=== PATIENT | male | born 1940 | race Caucasian/White ===

== ENCOUNTER 2017-08-27 16:43 | Inpatient (IN) | payer MEDICARE, OTHER ==
[~2017-08-27] VITALS: Ht 172.7 cm; Wt 129.2 kg
[~2017-08-27 16:43] MED LIST: CARV3.125 PO; CETI5 PO; CITA20 PO; CLOP75 PO; GLIP5 PO; GLUMETZA PO; GLYMET5 PO; INSLIS75I SC; INSULANI SC; INSULANPEN SC; LEVSOD50 PO; LIRA0.6P; MONT10T PO; OMEP40CA12 PO; ROSU10TA PO; TELM80 PO; TELM80/12.5 PO
[2017-08-27] MEDS ORDERED: TOUJEO SOL300 UNIT/1 (17:17)
[2017-08-27] MEDS ORDERED: GLUMETZA PO (17:19)
[2017-08-27] MEDS ORDERED: TELMISARTAN-HC1 EAC1 PO (17:20)
[2017-08-27] MEDS ORDERED: Citalopram HBr10 MG PO (17:21)
[2017-08-27] MEDS ORDERED: TRAM50 PO (17:21)
[2017-08-27] MEDS ORDERED: OMEPRAZOLE MAGN20 MG PO (17:22)
[2017-08-27] MEDS ORDERED: EPINEPHRIN0.3 MG/0.3 IM (17:23)
[2017-08-27 17:36] LABS: BASOPHILS ABSOLUTE AUTO 0.01 K/mm3 (0.00-0.23); BASOPHILS PERCENT AUTO 0 % (0-2); EOSINOPHILS ABSOLUTE AUTO 0.03 K/mm3 (0.00-0.68); EOSINOPHILS PERCENT AUTO 0 % (0-6); Hematocrit 34.3 % (37.0-53.0); Hemoglobin 10.7 g/dL (13.5-17.5); IMMATURE GRAN ABSOLUTE AUTO 0.02 K/mm3 (0.00-0.10); IMMATURE GRAN PERCENT AUTO 0 % (0-1); LYMPHOCYTES ABSOLUTE AUTO 0.99 K/mm3 (0.84-5.20); LYMPHOCYTES PERCENT AUTO 12 % (21-46); MONOCYTES ABSOLUTE AUTO 0.59 K/mm3 (0.16-1.47); MONOCYTES PERCENT AUTO 7 % (4-13); Mean Corpuscular HGB 28.5 pg (26.0-34.0); Mean Corpuscular HGB Conc 31.2 g/dL (31.5-36.5); Mean Corpuscular Volume 92 fL (80-100); Mean Platelet Volume 9.1 fL (9.1-12.4); NEUTROPHILS ABSOLUTE AUTO 6.84 K/mm3 (1.96-9.15); NEUTROPHILS PERCENT AUTO 81 % (41-73); Platelet Count 303 K/mm3 (150-400); RDW Coefficient Variation 16.6 % (11.7-14.2); RDW Standard Deviation 56.4 fL (35.1-46.3); Red Blood Cell Count 3.75 M/mm3 (4.30-5.90); White Blood Cell Count 8.48 K/mm3 (4.00-11.30)
[2017-08-27 17:47] LABS: International Normalized Ratio 1.1; Prothrombin Time Results 11.5 Sec (9.7-11.5)
[2017-08-27 17:52] LABS: Alanine Aminotransfer (ALT/SGP 17 U/L (12-78); Albumin, Blood 3.4 g/dL (3.4-5.0); Albumin/Globulin Ratio 0.8 (0.8-1.8); Alk Phos 57 U/L (50-136); Anion Gap 6 mmol/L (6-16); Aspartate Aminotrans (AST/SGOT 15 U/L (12-37); Bilirubin, Total 0.9 mg/dL (0.1-1.0); Blood Urea Nitrogen 15 mg/dL (8-24); Bun/Creatinine Ratio 20.2 (12.0-20.0); CO2, Blood 29 mmol/L (21-32); Calcium, Blood 8.8 mg/dL (8.5-10.1); Chloride, Blood 101 mmol/L (98-108); Creatinine, Blood 0.74 mg/dL (0.60-1.20); Globulin, Blood 4.1 g/dL (2.2-4.0); Glomerular Filtration Rate >60 (60-); Glucose, Blood 123 mg/dL (70-99); Potassium, Blood 3.8 mmol/L (3.5-5.5); Sodium, Blood 136 mmol/L (136-145); Total Protein, Blood 7.5 g/dL (6.4-8.2)
[2017-08-27 19:40] LABS: Source, Urine Clean Catch
[2017-08-27 19:47] LABS: Appearance, Urine Clear (Clear); Bilirubin, Urine Neg (Neg); Blood, Urine 1+ (Neg); Color, Urine Yellow (P-Yellow); Glucose Qualitative, Urine Neg (Neg); Ketones, Urine Neg (Neg); Leukocyte Esterase, Urine Neg (Neg); Nitrite, Urine Neg (Neg); Protein, Urine 3+ (Neg); Specific Gravity, Urine 1.015 (1.003-1.022); Urobilinogen, Urine NORM (Normal)
[2017-08-27 20:05] LABS: Bacteria Not Seen /hpf; Hyaline Casts 0-2 /lpf (0-2); Red Blood Cells, Urine 0-2 /hpf (0-2); Squamous Epithelial Cells Few /hpf (Few); White Blood Cells, Urine 0-2 /hpf (0-5)
[2017-08-28 05:53] LABS: Hematocrit 34.5 % (37.0-53.0); Hemoglobin 10.7 g/dL (13.5-17.5); Mean Corpuscular HGB 28.3 pg (26.0-34.0); Mean Corpuscular Volume 91 fL (80-100); Mean Platelet Volume 8.8 fL (9.1-12.4); Platelet Count 289 K/mm3 (150-400); RDW Coefficient Variation 16.6 % (11.7-14.2); RDW Standard Deviation 56.4 fL (35.1-46.3); Red Blood Cell Count 3.78 M/mm3 (4.30-5.90); White Blood Cell Count 9.21 K/mm3 (4.00-11.30)
[2017-08-28 06:15] LABS: Alanine Aminotransfer (ALT/SGP 16 U/L (12-78); Albumin/Globulin Ratio 0.7 (0.8-1.8); Alk Phos 57 U/L (50-136); Anion Gap 6 mmol/L (6-16); Aspartate Aminotrans (AST/SGOT 16 U/L (12-37); Bilirubin, Total 0.9 mg/dL (0.1-1.0); Blood Urea Nitrogen 13 mg/dL (8-24); Bun/Creatinine Ratio 15.1 (12.0-20.0); CO2, Blood 30 mmol/L (21-32); Calcium, Blood 8.5 mg/dL (8.5-10.1); Chloride, Blood 104 mmol/L (98-108); Creatinine, Blood 0.86 mg/dL (0.60-1.20); Globulin, Blood 4.3 g/dL (2.2-4.0); Glomerular Filtration Rate >60 (60-); Glucose, Blood 107 mg/dL (70-99); Potassium, Blood 3.8 mmol/L (3.5-5.5); Sodium, Blood 140 mmol/L (136-145); Total Protein, Blood 7.3 g/dL (6.4-8.2)
[2017-08-29 05:30] LABS: BASOPHILS ABSOLUTE AUTO 0.01 K/mm3 (0.00-0.23); BASOPHILS PERCENT AUTO 0 % (0-2); EOSINOPHILS ABSOLUTE AUTO 0.02 K/mm3 (0.00-0.68); EOSINOPHILS PERCENT AUTO 0 % (0-6); Hematocrit 31.5 % (37.0-53.0); Hemoglobin 9.6 g/dL (13.5-17.5); IMMATURE GRAN ABSOLUTE AUTO 0.02 K/mm3 (0.00-0.10); IMMATURE GRAN PERCENT AUTO 0 % (0-1); LYMPHOCYTES ABSOLUTE AUTO 0.71 K/mm3 (0.84-5.20); LYMPHOCYTES PERCENT AUTO 11 % (21-46); MONOCYTES ABSOLUTE AUTO 0.47 K/mm3 (0.16-1.47); MONOCYTES PERCENT AUTO 8 % (4-13); Mean Corpuscular HGB 28.3 pg (26.0-34.0); Mean Corpuscular HGB Conc 30.5 g/dL (31.5-36.5); Mean Corpuscular Volume 93 fL (80-100); Mean Platelet Volume 8.7 fL (9.1-12.4); NEUTROPHILS ABSOLUTE AUTO 5.02 K/mm3 (1.96-9.15); NEUTROPHILS PERCENT AUTO 80 % (41-73); Platelet Count 272 K/mm3 (150-400); RDW Coefficient Variation 16.7 % (11.7-14.2); RDW Standard Deviation 58.2 fL (35.1-46.3); Red Blood Cell Count 3.39 M/mm3 (4.30-5.90); White Blood Cell Count 6.25 K/mm3 (4.00-11.30)
[2017-08-29 05:59] LABS: Alanine Aminotransfer (ALT/SGP 19 U/L (12-78); Albumin, Blood 2.5 g/dL (3.4-5.0); Albumin/Globulin Ratio 0.6 (0.8-1.8); Alk Phos 51 U/L (50-136); Anion Gap 5 mmol/L (6-16); Aspartate Aminotrans (AST/SGOT 29 U/L (12-37); Bilirubin, Total 1.2 mg/dL (0.1-1.0); Blood Urea Nitrogen 18 mg/dL (8-24); Bun/Creatinine Ratio 22.5 (12.0-20.0); CO2, Blood 30 mmol/L (21-32); Calcium, Blood 8.1 mg/dL (8.5-10.1); Chloride, Blood 106 mmol/L (98-108); Globulin, Blood 3.9 g/dL (2.2-4.0); Glomerular Filtration Rate >60 (60-); Glucose, Blood 116 mg/dL (70-99); Potassium, Blood 3.8 mmol/L (3.5-5.5); Sodium, Blood 141 mmol/L (136-145); Total Protein, Blood 6.4 g/dL (6.4-8.2)
[2017-08-29 11:36] LABS: Percent Saturation 9.3 % (20.0-50.0)
[2017-08-30 05:02] LABS: BASOPHILS ABSOLUTE AUTO 0.01 K/mm3 (0.00-0.23); BASOPHILS PERCENT AUTO 0 % (0-2); EOSINOPHILS ABSOLUTE AUTO 0.09 K/mm3 (0.00-0.68); EOSINOPHILS PERCENT AUTO 2 % (0-6); Hematocrit 32.7 % (37.0-53.0); Hemoglobin 9.9 g/dL (13.5-17.5); IMMATURE GRAN ABSOLUTE AUTO 0.01 K/mm3 (0.00-0.10); IMMATURE GRAN PERCENT AUTO 0 % (0-1); LYMPHOCYTES ABSOLUTE AUTO 0.47 K/mm3 (0.84-5.20); LYMPHOCYTES PERCENT AUTO 12 % (21-46); MONOCYTES PERCENT AUTO 8 % (4-13); Mean Corpuscular HGB 27.7 pg (26.0-34.0); Mean Corpuscular HGB Conc 30.3 g/dL (31.5-36.5); Mean Corpuscular Volume 92 fL (80-100); Mean Platelet Volume 8.8 fL (9.1-12.4); NEUTROPHILS ABSOLUTE AUTO 3.12 K/mm3 (1.96-9.15); NEUTROPHILS PERCENT AUTO 78 % (41-73); Platelet Count 319 K/mm3 (150-400); RDW Coefficient Variation 16.8 % (11.7-14.2); RDW Standard Deviation 57.3 fL (35.1-46.3); Red Blood Cell Count 3.57 M/mm3 (4.30-5.90)
[2017-08-30 05:23] LABS: Alanine Aminotransfer (ALT/SGP 19 U/L (12-78); Albumin, Blood 2.4 g/dL (3.4-5.0); Albumin/Globulin Ratio 0.6 (0.8-1.8); Alk Phos 55 U/L (50-136); Anion Gap 5 mmol/L (6-16); Aspartate Aminotrans (AST/SGOT 20 U/L (12-37); Bilirubin, Total 0.7 mg/dL (0.1-1.0); Blood Urea Nitrogen 21 mg/dL (8-24); Bun/Creatinine Ratio 26.1 (12.0-20.0); CO2, Blood 30 mmol/L (21-32); Calcium, Blood 8.3 mg/dL (8.5-10.1); Chloride, Blood 105 mmol/L (98-108); Globulin, Blood 4.3 g/dL (2.2-4.0); Glomerular Filtration Rate >60 (60-); Glucose, Blood 165 mg/dL (70-99); Potassium, Blood 3.8 mmol/L (3.5-5.5); Sodium, Blood 140 mmol/L (136-145); Total Protein, Blood 6.7 g/dL (6.4-8.2)
[2017-08-30] MEDS ORDERED: Senna Plus Tab1 EACH PO (15:48)
[2017-08-30] MEDS ORDERED: ONDA4 PO (15:49)
[2017-08-30] MEDS ORDERED: MIRALAX17 GM PO (15:50)
[2017-08-30] MEDS ORDERED: Percocet 5-3251 EACH PO (15:51)
== END 2017-08-30 16:34 | disposition home or self-care (01) | DRG 392 ==
LOC: ER 16:43 → SURS 20:10
PROVIDERS: Emergency Medicine; Internal Medicine; Internal Medicine Gastroenterology
PROC: 0DB98ZX Excision of Duodenum, Via Natural or Artificial Opening Endoscopic, Diagnostic (ICD-10-PCS; principal; 2017-08-28 18:30)
PROC: 0DB98ZX Excision of Duodenum, Via Natural or Artificial Opening Endoscopic, Diagnostic (ICD-10-PCS; 2017-08-28 18:30)
DX: R19.00 Intra-abdominal and pelvic swelling, mass and lump, unspecified site (principal); E66.2 Morbid (severe) obesity with alveolar hypoventilation; Z68.41 Body mass index [BMI] 40.0-44.9, adult; K26.9 Duodenal ulcer, unspecified as acute or chronic, without hemorrhage or perforation; J44.9 Chronic obstructive pulmonary disease, unspecified; K81.9 Cholecystitis, unspecified; I10 Essential (primary) hypertension; G47.30 Sleep apnea, unspecified; K31.7 Polyp of stomach and duodenum; E11.9 Type 2 diabetes mellitus without complications
CPT/HCPCS: 36415; 74177; 76705; 78226; 80053; 81001; 82728; 82941; 82947; 83540; 83550; 83690; 84484; 85025; 85027; 85610; 88305; 88342; 93005; 93010; 94640; 94760; 94761; 94762; 96361; 96374; 96375; 97116; 97162; 97530; 99285; A9537; G8978; G8979; J0295; J1170; J2250; J2405; J2543; J3010; J7030; J7120; Q9967

== ENCOUNTER 2018-01-07 15:42 | Inpatient (IN) | payer MEDICARE, OTHER ==
[~2018-01-07] VITALS: Ht 172.7 cm; Wt 116.2 kg
[~2018-01-07 15:42] MED LIST changes: +Citalopram HBr10 MG PO; +EPINEPHRIN0.3 MG/0.3 IM; +MIRALAX17 GM PO; +OMEPRAZOLE MAGN20 MG PO; +ONDA4 PO; +Percocet 5-3251 EACH PO; +Senna Plus Tab1 EACH PO; +TELMISARTAN-HC1 EAC1 PO; +TOUJEO SOL300 UNIT/1 SC; +TRAM50 PO
[2018-01-07] MEDS ORDERED: AZO CRANBERRY1 EAC1 PO (16:21)
[2018-01-07] MEDS ORDERED: Nitrostat0.4 MG SL (16:22)
[2018-01-07] MEDS ORDERED: XYZAL5 MG PO (16:22)
[2018-01-07 16:25] LABS: Hematocrit 35.1 % (37.0-53.0); Hemoglobin 11.6 g/dL (13.5-17.5); Mean Corpuscular HGB 26.9 pg (26.0-34.0); Mean Platelet Volume 8.8 fL (9.1-12.4); Platelet Count 286 K/mm3 (150-400); RDW Coefficient Variation 16.1 % (11.7-14.2); RDW Standard Deviation 48.7 fL (35.1-46.3); Red Blood Cell Count 4.31 M/mm3 (4.30-5.90)
[2018-01-07 16:26] LABS: Mean Corpuscular Volume 81 fL (80-100)
[2018-01-07 16:37] LABS: Alanine Aminotransfer (ALT/SGP 21 U/L (12-78); Albumin, Blood 2.6 g/dL (3.4-5.0); Albumin/Globulin Ratio 0.6 (0.8-1.8); Alk Phos 88 U/L (50-136); Anion Gap 12 mmol/L (6-16); Aspartate Aminotrans (AST/SGOT 23 U/L (12-37); Blood Urea Nitrogen 12 mg/dL (8-24); Bun/Creatinine Ratio 16.3 (12.0-20.0); CO2, Blood 28 mmol/L (21-32); Calcium, Blood 8.3 mg/dL (8.5-10.1); Chloride, Blood 94 mmol/L (98-108); Creatinine, Blood 0.74 mg/dL (0.60-1.20); Globulin, Blood 4.5 g/dL (2.2-4.0); Glomerular Filtration Rate >60 (60-); Glucose, Blood 194 mg/dL (70-99); Potassium, Blood 3.1 mmol/L (3.5-5.5); Sodium, Blood 134 mmol/L (136-145); Total Protein, Blood 7.1 g/dL (6.4-8.2)
[2018-01-07 16:49] LABS: BAND PERCENT MAN 2 % (0-8); BASOPHILS PERCENT MAN 0 % (0-2); EOSINOPHILS PERCENT MAN 0 % (0-6); LYMPHOCYTES ABSOLUTE MAN 0.36 K/mm3 (0.84-5.20); LYMPHOCYTES PERCENT MAN 12 % (21-46); MONOCYTES ABSOLUTE MAN 0.48 K/mm3 (0.16-1.47); MONOCYTES PERCENT MAN 16 % (4-13); NEUTROPHILS ABSOLUTE MAN 2.16 K/mm3 (1.96-9.15); SEG NEUTROPHILS PERCENT MAN 70 % (41-73); TOTAL CELLS COUNTED 100
[2018-01-08 05:38] LABS: Hematocrit 31.4 % (37.0-53.0); Mean Corpuscular HGB 26.5 pg (26.0-34.0); Mean Corpuscular HGB Conc 31.8 g/dL (31.5-36.5); Mean Corpuscular Volume 83 fL (80-100); Mean Platelet Volume 9.1 fL (9.1-12.4); Platelet Count 244 K/mm3 (150-400); RDW Coefficient Variation 16.2 % (11.7-14.2); RDW Standard Deviation 49.4 fL (35.1-46.3); Red Blood Cell Count 3.77 M/mm3 (4.30-5.90); White Blood Cell Count 1.89 K/mm3 (4.00-11.30)
[2018-01-08 06:07] LABS: BAND PERCENT MAN 8 % (0-8); BASOPHILS PERCENT MAN 0 % (0-2); EOSINOPHILS PERCENT MAN 0 % (0-6); LYMPHOCYTES ABSOLUTE MAN 0.13 K/mm3 (0.84-5.20); LYMPHOCYTES PERCENT MAN 7 % (21-46); METAMYELOCYTE ABSOLUTE MAN 0.01 K/mm3 (0.00-0.00); METAMYELOCYTE PERCENT MAN 1 % (0-0); MONOCYTES ABSOLUTE MAN 0.28 K/mm3 (0.16-1.47); MONOCYTES PERCENT MAN 15 % (4-13); MYELOCYTE ABSOLUTE MAN 0.05 K/mm3 (0.00-0.00); MYELOCYTE PERCENT MAN 3 % (0-0); NEUTROPHILS ABSOLUTE MAN 1.39 K/mm3 (1.96-9.15); SEG NEUTROPHILS PERCENT MAN 66 % (41-73); TOTAL CELLS COUNTED 100
[2018-01-08 06:09] LABS: Anion Gap 8 mmol/L (6-16); Blood Urea Nitrogen 8 mg/dL (8-24); Bun/Creatinine Ratio 10.3 (12.0-20.0); CO2, Blood 31 mmol/L (21-32); Calcium, Blood 8.1 mg/dL (8.5-10.1); Chloride, Blood 101 mmol/L (98-108); Creatinine, Blood 0.77 mg/dL (0.60-1.20); Free Thyroxine 1.35 ng/dL (0.70-1.60); Glomerular Filtration Rate >60 (60-); Glucose, Blood 118 mg/dL (70-99); Sodium, Blood 140 mmol/L (136-145)
[2018-01-08 06:13] LABS: Thyroid Stimulating Hormone 0.386 uIU/mL (0.360-4.800); Triiodothyronine, Free 1.99 pg/mL (2.18-3.98)
[2018-01-09 05:44] LABS: Hematocrit 32.2 % (37.0-53.0); Hemoglobin 10.3 g/dL (13.5-17.5); Mean Corpuscular HGB 26.8 pg (26.0-34.0); Mean Corpuscular Volume 84 fL (80-100); Mean Platelet Volume 8.6 fL (9.1-12.4); Platelet Count 250 K/mm3 (150-400); RDW Coefficient Variation 16.1 % (11.7-14.2); RDW Standard Deviation 49.1 fL (35.1-46.3); Red Blood Cell Count 3.85 M/mm3 (4.30-5.90); White Blood Cell Count 1.52 K/mm3 (4.00-11.30)
[2018-01-09 06:04] LABS: Anion Gap 7 mmol/L (6-16); Blood Urea Nitrogen 10 mg/dL (8-24); Bun/Creatinine Ratio 14.4 (12.0-20.0); CO2, Blood 30 mmol/L (21-32); Calcium, Blood 8.1 mg/dL (8.5-10.1); Chloride, Blood 103 mmol/L (98-108); Glomerular Filtration Rate >60 (60-); Glucose, Blood 128 mg/dL (70-99); Potassium, Blood 3.2 mmol/L (3.5-5.5); Sodium, Blood 140 mmol/L (136-145); Vancomycin, Trough 4.5 ug/mL (5.0-10.0)
[2018-01-09 06:10] LABS: BAND PERCENT MAN 7 % (0-8); BASOPHILS ABSOLUTE MAN 0.04 K/mm3 (0.00-0.23); BASOPHILS PERCENT MAN 3 % (0-2); EOSINOPHILS ABSOLUTE MAN 0.01 K/mm3 (0.00-0.68); EOSINOPHILS PERCENT MAN 1 % (0-6); LYMPHOCYTES ABSOLUTE MAN 0.18 K/mm3 (0.84-5.20); LYMPHOCYTES PERCENT MAN 12 % (21-46); MONOCYTES ABSOLUTE MAN 0.31 K/mm3 (0.16-1.47); MONOCYTES PERCENT MAN 21 % (4-13); NEUTROPHILS ABSOLUTE MAN 0.95 K/mm3 (1.96-9.15); SEG NEUTROPHILS PERCENT MAN 56 % (41-73); TOTAL CELLS COUNTED 100
[2018-01-11] MEDS ORDERED: CARV6.25 PO (10:25)
[2018-01-11] MEDS ORDERED: INSULANPEN SC (10:27)
[2018-01-11] MEDS ORDERED: ALBU3IS INH (10:49)
[2018-01-11] MEDS ORDERED: LIOT5 PO (10:50)
[2018-01-11] MEDS ORDERED: Senna8.6 MG PO (10:50)
[2018-01-11] MEDS ORDERED: DOCU100 PO (10:50)
[2018-01-11] MEDS ORDERED: POTCHL20ER PO (10:50)
[2018-01-11] MEDS ORDERED: CEFP200 PO (10:51)
== END 2018-01-11 12:07 | disposition home or self-care (01) | DRG 871 ==
LOC: ER 15:42 → MEDS 18:03 → ENPENDDIS 01-11 09:24 → MEDS 01-11 12:07
PROVIDERS: Emergency Medicine; Internal Medicine
DX: A41.9 Sepsis, unspecified organism (principal); J18.9 Pneumonia, unspecified organism; J96.01 Acute respiratory failure with hypoxia; G93.41 Metabolic encephalopathy; C88.4 Extranodal marginal zone B-cell lymphoma of mucosa-associated lymphoid tissue [MALT-lymphoma]; E87.1 Hypo-osmolality and hyponatremia; R65.20 Severe sepsis without septic shock; E86.0 Dehydration; E11.9 Type 2 diabetes mellitus without complications; I10 Essential (primary) hypertension; E78.5 Hyperlipidemia, unspecified; E87.6 Hypokalemia; E03.9 Hypothyroidism, unspecified; G47.33 Obstructive sleep apnea (adult) (pediatric); K59.09 Other constipation; D63.8 Anemia in other chronic diseases classified elsewhere; D70.1 Agranulocytosis secondary to cancer chemotherapy; E66.9 Obesity, unspecified; Z92.21 Personal history of antineoplastic chemotherapy; Z79.4 Long term (current) use of insulin; Z79.899 Other long term (current) drug therapy; Z88.6 Allergy status to analgesic agent; Z88.1 Allergy status to other antibiotic agents; Z88.5 Allergy status to narcotic agent; Z88.2 Allergy status to sulfonamides; Z88.8 Allergy status to other drugs, medicaments and biological substances; Z87.891 Personal history of nicotine dependence; Z68.25 Body mass index [BMI] 25.0-25.9, adult
CPT/HCPCS: 36415; 71045; 71046; 80048; 80053; 80202; 82947; 83605; 84145; 84439; 84443; 84481; 85025; 87040; 93005; 93010; 94640; 94760; 96361; 96365; 96375; 99285-25; J0692; J2405; J3370; J7030; J7050; J7120

== ENCOUNTER 2018-06-04 18:53 | Emergency (ER) | payer MEDICARE, OTHER ==
[~2018-06-04] VITALS: Ht 172.7 cm; Wt 122.5 kg
[~2018-06-04 18:53] MED LIST changes: +ALBU3IS INH; +AZO CRANBERRY1 EAC1 PO; +CARV6.25 PO; +CEFP200 PO; +DOCU100 PO; +LIOT5 PO; +Nitrostat0.4 MG SL; +POTCHL20ER PO; +Senna8.6 MG PO; +XYZAL5 MG PO
[2018-06-04 19:28] LABS: BASOPHILS ABSOLUTE AUTO 0.02 K/mm3 (0.00-0.23); BASOPHILS PERCENT AUTO 0 % (0-2); EOSINOPHILS ABSOLUTE AUTO 0.02 K/mm3 (0.00-0.68); EOSINOPHILS PERCENT AUTO 0 % (0-6); Hematocrit 41.6 % (37.0-53.0); Hemoglobin 13.8 g/dL (13.5-17.5); IMMATURE GRAN ABSOLUTE AUTO 0.02 K/mm3 (0.00-0.10); IMMATURE GRAN PERCENT AUTO 0 % (0-1); LYMPHOCYTES ABSOLUTE AUTO 0.74 K/mm3 (0.84-5.20); LYMPHOCYTES PERCENT AUTO 7 % (21-46); MONOCYTES ABSOLUTE AUTO 0.98 K/mm3 (0.16-1.47); MONOCYTES PERCENT AUTO 9 % (4-13); Mean Corpuscular HGB 28.6 pg (26.0-34.0); Mean Corpuscular HGB Conc 33.2 g/dL (31.5-36.5); Mean Corpuscular Volume 86 fL (80-100); Mean Platelet Volume 9.4 fL (9.1-12.4); NEUTROPHILS ABSOLUTE AUTO 9.57 K/mm3 (1.96-9.15); NEUTROPHILS PERCENT AUTO 84 % (41-73); Platelet Count 169 K/mm3 (150-400); RDW Coefficient Variation 15.9 % (11.7-14.2); RDW Standard Deviation 49.1 fL (35.1-46.3); Red Blood Cell Count 4.83 M/mm3 (4.30-5.90); White Blood Cell Count 11.35 K/mm3 (4.00-11.30)
[2018-06-04 19:46] LABS: Alanine Aminotransfer (ALT/SGP 40 U/L (12-78); Albumin, Blood 3.5 g/dL (3.4-5.0); Albumin/Globulin Ratio 0.9 (0.8-1.8); Alk Phos 54 U/L (50-136); Anion Gap 8 mmol/L (6-16); Aspartate Aminotrans (AST/SGOT 22 U/L (12-37); Bilirubin, Total 1.1 mg/dL (0.1-1.0); Blood Urea Nitrogen 13 mg/dL (8-24); Bun/Creatinine Ratio 16.8 (12.0-20.0); CO2, Blood 27 mmol/L (21-32); Calcium, Blood 8.5 mg/dL (8.5-10.1); Chloride, Blood 103 mmol/L (98-108); Creatinine, Blood 0.78 mg/dL (0.60-1.20); Globulin, Blood 3.7 g/dL (2.2-4.0); Glomerular Filtration Rate >60 (60-); Glucose, Blood 117 mg/dL (70-99); Potassium, Blood 3.5 mmol/L (3.5-5.5); Sodium, Blood 138 mmol/L (136-145); Total Protein, Blood 7.2 g/dL (6.4-8.2); Troponin I <0.015 ng/mL (0.000-0.040)
[2018-06-04] MEDS ORDERED: Doxycycline Hy100 MG PO (22:21)
== END 2018-06-04 22:40 | disposition home or self-care (01) ==
LOC: ER 18:53
PROVIDERS: Physician Assistant
DX: R04.2 Hemoptysis (principal); E11.9 Type 2 diabetes mellitus without complications; Z88.8 Allergy status to other drugs, medicaments and biological substances; Z88.2 Allergy status to sulfonamides; Z88.6 Allergy status to analgesic agent; Z88.5 Allergy status to narcotic agent; Z91.018 Allergy to other foods; Z79.899 Other long term (current) drug therapy; Z79.4 Long term (current) use of insulin; Z87.891 Personal history of nicotine dependence
CPT/HCPCS: 71046; 71260; 80053; 84484; 85025; 93005; 93010; 99285-25; Q9967

== ENCOUNTER 2018-06-05 18:29 | Emergency (ER) | payer MEDICARE, OTHER ==
[~2018-06-05] VITALS: Ht 172.7 cm; Wt 122.5 kg
[~2018-06-05 18:29] MED LIST changes: +Doxycycline Hy100 MG PO
== END 2018-06-05 21:33 | disposition left against medical advice (07) ==
LOC: ER 18:29
DX: Z53.21 Procedure and treatment not carried out due to patient leaving prior to being seen by health care provider (principal)

== ENCOUNTER 2018-09-26 09:04 | Day surgery (SDC) | payer MEDICARE, OTHER ==
[~2018-09-26] VITALS: Ht 165.1 cm; Wt 129.4 kg
[~2018-09-26 09:04] MED LIST changes: +AMLO5 PO; +Crestor20 MG PO; +Humalog100 UNIT/1; +Lantus100 UNIT/1 SC; +TRAZ50 PO; +Xyzal5 MG PO
--- NOTE | 2018-09-26 11:26 | NUR ---
09/26/18 1126 Awa Nielsen LATE ENTRY---DURING PROCEDURE O2 WAS SET AT 10L/POM MASK AND THE NASAL CANNULA WAS USED TO MONITOR CO2.
== END 2018-09-26 11:05 | disposition home or self-care (01) ==
LOC: ORSCSDS 09:04
PROVIDERS: Internal Medicine Gastroenterology
PROC: 0DB68ZX Excision of Stomach, Via Natural or Artificial Opening Endoscopic, Diagnostic (ICD-10-PCS; principal; 2018-09-26 10:15)
PROC: 0DB98ZX Excision of Duodenum, Via Natural or Artificial Opening Endoscopic, Diagnostic (ICD-10-PCS; principal; 2018-09-26 10:15)
DX: Z85.79 Personal history of other malignant neoplasms of lymphoid, hematopoietic and related tissues (principal); K31.7 Polyp of stomach and duodenum; E11.9 Type 2 diabetes mellitus without complications; I10 Essential (primary) hypertension; E78.5 Hyperlipidemia, unspecified; G47.33 Obstructive sleep apnea (adult) (pediatric); J44.9 Chronic obstructive pulmonary disease, unspecified; Z87.891 Personal history of nicotine dependence; Z79.4 Long term (current) use of insulin; Z79.899 Other long term (current) drug therapy
CPT/HCPCS: 82947; 88305; 88341; 88342; J2250; J2704; J7120

== ENCOUNTER 2020-05-23 08:25 | Day surgery (SDC) | payer MEDICARE, OTHER ==
[~2020-05-23] VITALS: Ht 172.7 cm; Wt 124.5 kg
[~2020-05-23 08:25] MED LIST changes: +CITALOPRAM HBR20 MG PO; +HUMALOG100 UNIT/1 SC; +TELM20; +TOUJEO SOL300 UNIT/2 SC; +ZOLP10; +[UNRECOGNIZED DRUG - OTHER] PO
--- NOTE | 2020-05-23 10:29 | NUR ---
05/23/20 1029 Jacey Farrar SIMETHICONE USED DURING PROCEDURE.
--- NOTE | 2020-05-23 16:16 | NUR ---
05/23/20 1616 LeniJacey Gt DELAYED ENTRY POST PROCEDURE, PT BROUGHT BACK TO ROOM. VITAL SIGNS OBTAINED, WNL, PT ALERT & ORIENTED, DENIED PAIN OR DISCOMFORT. PT VERBALIZING WITH RN REGARDING PROCEDURE & FINDINGS, RN INFORMED THAT PHYSICIAN WOULD BE IN WITH MORE DETAILS. PO INTAKE PROVIDED. PT RESTING COMFORTABLY IN BED, DRINKING JUICE, CALL LIGHT WITHIN REACH. PT BELONGINGS PLACED ON BED PER PT'S REQUEST TO DRESS. PT STS HE "FEELS GOOD" AND VERBALIZED ABILITY TO DRESS WITHOUT ASSISTANCE. RN REMINDED PATIENT TO TAKE TIME AND MOVE SLOWLY. RN CLOSED CURTAIN FOR PRIVACY, REMINDED PATIENT TO PRESS CALL LIGHT IF ASSISTANCE WAS NEEDED. MOMENTS LATER, RN IN ROOM NEXT TO PATIENT, HEARD A LOUD BANG AND BELONGINGS BAG FALL. UPON ENTERING, RN FOUND PATIENT DOWN ON GROUND ON ALL FOURS, PALMS & ON KNEES. PT VERBALIZED HE HAD FALLEN OUT OF BED. PT DENIED ANY PAIN, INJURY OR HITTING HEAD DURING FALL. RN INSTRUCTED PATIENT TO LAY ON HIS SIDE IF HE WAS ABLE TO. PT ROTATED TO SIDE. MULTIPLE STAFF MEMBERS, INCLUDING 3 RN, 1 MD, 1 ORT, TO ROOM TO ASSIST PATIENT TO WHEEL CHAIR VIA GAIT BELT. PT ASSESSED AGAIN, AND CONTINUED TO DENY PAIN OR INJURYING, STATING "I'M FINE, I'M JUST EMBARRESSED." NEW DISPOSABLE BRIEF PROVIDED, CURRENT ONE WAS REMOVED IN PROCEDURE ROOM. 2 RN ASSISTED PATIENT IN DRESSING WHILE IN W/C. GAIT BELT UTILIZED TO ASSIST PATIENT TO STANDING POSITION TO COMPLETE DRESSING. PT ASKED IF HIS KNEE WAS BLEEDING, POINTING TO RIGHT KNEE. RN ASSESSED, SLIGHT REDDENING, BUT NO LACERATION OR ABRASION NOTED. RN INQUIRED ABOUT PAIN OR DISCOMFORT, PATIENT CONTINUED TO DENY. PT REQUESTED TO LEAVE, REITERATING HE WAS WITHOUT INJURY AND WANTED TO GO HOME. PT INFORMED PHYSICIAN NEEDED TO ASSESS PATIENT FOR INJURY PRIOR TO DISCHARGE, HOWEVER PHYSICIAN WAS CURRENTLY IN PROCEDURE. PT STATED HE DID NOT WANT TO WAIT FOR PHYSICIAN AND REQUESTED TO LEAVE AGAINST MEDICAL ADVICE. DR. PIERCE INFORMED OF PATIENT'S REQUEST TO LEAVE AMA WITHOUT PHYSICIAN ASSESSMENT. DR. PIERCE ADVISED PATIENT NOT TO LEAVE AMA FOR SAFETY REASONS, BUT ALSO BECAUSE INSURANCE COULD DENY COVERAGE FOR COLONOSCOPY/ENDOSCOPY. PT INFORMED AND AGREED TO WAIT FOR DR ASSESSMENT PRIOR TO LEAVING. PT PROVIDED MORE JUICE, CALL LIGHT WITHIN REACH. DENIED FURTHER NEEDS OR DISCOMFORT. PT PRESSED CALL LIGHT, IN NEED TO USE RESTROOM. PT TAKEN TO RESTROOM VIA WHEELCHAIR BY MA & RN. MALE MA ASSISTED PATIENT IN TRANSFERRING FROM WHEELCHAIR TO TOILET VIA GAIT BELT. PATIENT RETURNED TO WHEELCHAIR VIA GAIT BELT. DR. PIERCE ASSESSED PATIENT, AND ADVISED PATIENT WAS MEDICALLY STABLE TO DISCHARGE HOME, PT WAS NOT EXHIBITING SYMPTOMS, AND CONTINUED TO DENY ANY PAIN. PATIENT ESCORTED TO [place], [place], CAR VIA WHEEL CHAIR BY RN. RN ASSISTED PATIENT IN TRANSFER TO CAR VIA GAIT BELT. PT STEADY ON FEET, VERBALIZED THANKS, STATING HE WAS EAGER TO GO HOME. GAIT BELT REMOVED.
== END 2020-05-23 12:45 | disposition home or self-care (01) ==
LOC: ORSCSDS 08:25
PROVIDERS: Internal Medicine Gastroenterology
PROC: 0DBK8ZX Excision of Ascending Colon, Via Natural or Artificial Opening Endoscopic, Diagnostic (ICD-10-PCS; principal; 2020-05-23 09:45)
PROC: 0DBM8ZX Excision of Descending Colon, Via Natural or Artificial Opening Endoscopic, Diagnostic (ICD-10-PCS; principal; 2020-05-23 09:45)
PROC: 0DBN8ZX Excision of Sigmoid Colon, Via Natural or Artificial Opening Endoscopic, Diagnostic (ICD-10-PCS; principal; 2020-05-23 09:45)
PROC: 0DB98ZX Excision of Duodenum, Via Natural or Artificial Opening Endoscopic, Diagnostic (ICD-10-PCS; principal; 2020-05-23 09:45)
PROC: 0DB78ZX Excision of Stomach, Pylorus, Via Natural or Artificial Opening Endoscopic, Diagnostic (ICD-10-PCS; principal; 2020-05-23 09:45)
PROC: 0DBL8ZX Excision of Transverse Colon, Via Natural or Artificial Opening Endoscopic, Diagnostic (ICD-10-PCS; principal; 2020-05-23 09:45)
DX: R19.7 Diarrhea, unspecified (principal); K31.89 Other diseases of stomach and duodenum; K29.70 Gastritis, unspecified, without bleeding; D12.5 Benign neoplasm of sigmoid colon; D12.3 Benign neoplasm of transverse colon; D12.2 Benign neoplasm of ascending colon; D12.4 Benign neoplasm of descending colon; Z85.79 Personal history of other malignant neoplasms of lymphoid, hematopoietic and related tissues; E11.9 Type 2 diabetes mellitus without complications; I10 Essential (primary) hypertension; E78.5 Hyperlipidemia, unspecified; G47.33 Obstructive sleep apnea (adult) (pediatric); I25.10 Atherosclerotic heart disease of native coronary artery without angina pectoris; Z87.891 Personal history of nicotine dependence; Z80.0 Family history of malignant neoplasm of digestive organs; Z79.899 Other long term (current) drug therapy; Z79.4 Long term (current) use of insulin
CPT/HCPCS: 82947; 88305; 88341; 88342; J2704; J7120

== ENCOUNTER → 2020-09-30 | Outpatient (CLI) | payer MEDICARE, OTHER | END | disposition home or self-care (01) | LOC: LAB 11:21 → LAB SHORT 11:21 | DX: L30.9 Dermatitis, unspecified (principal) | CPT/HCPCS: 88305 ==

== ENCOUNTER 2021-04-19 00:34 | Observation (INO) | payer MEDICARE, OTHER ==
[~2021-04-19] VITALS: Ht 167.6 cm; Wt 103.0 kg
[~2021-04-19 00:34] MED LIST changes: +OMEP20ER PO
[2021-04-19 00:57] LABS: BASOPHILS ABSOLUTE AUTO 0.05 K/mm3 (0.00-0.23); BASOPHILS PERCENT AUTO 1 % (0-2); EOSINOPHILS PERCENT AUTO 6 % (0-6); Hematocrit 41.1 % (37.0-53.0); Hemoglobin 12.9 g/dL (13.5-17.5); IMMATURE GRAN ABSOLUTE AUTO 0.02 K/mm3 (0.00-0.10); IMMATURE GRAN PERCENT AUTO 0 % (0-1); LYMPHOCYTES ABSOLUTE AUTO 0.98 K/mm3 (0.84-5.20); LYMPHOCYTES PERCENT AUTO 21 % (21-46); MONOCYTES ABSOLUTE AUTO 0.48 K/mm3 (0.16-1.47); MONOCYTES PERCENT AUTO 10 % (4-13); Mean Corpuscular HGB 28.6 pg (26.0-34.0); Mean Corpuscular HGB Conc 31.4 g/dL (31.5-36.5); Mean Corpuscular Volume 91 fL (80-100); Mean Platelet Volume 9.5 fL (9.1-12.4); NEUTROPHILS ABSOLUTE AUTO 2.84 K/mm3 (1.96-9.15); NEUTROPHILS PERCENT AUTO 61 % (41-73); Platelet Count 172 K/mm3 (150-400); RDW Coefficient Variation 14.6 % (11.7-14.2); RDW Standard Deviation 48.6 fL (35.1-46.3); Red Blood Cell Count 4.51 M/mm3 (4.30-5.90); White Blood Cell Count 4.67 K/mm3 (4.00-11.30)
[2021-04-19 01:14] LABS: International Normalized Ratio 1.04; Prothrombin Time Results 10.9 Sec (9.7-11.5)
[2021-04-19 01:26] LABS: Alanine Aminotransfer (ALT/SGP 32 U/L (12-78); Albumin, Blood 3.3 g/dL (3.4-5.0); Alk Phos 53 U/L (50-136); Anion Gap 7 mmol/L (6-16); Aspartate Aminotrans (AST/SGOT 19 U/L (12-37); Bilirubin, Total 0.6 mg/dL (0.1-1.0); Blood Urea Nitrogen 16 mg/dL (8-24); Bun/Creatinine Ratio 18.7 (12.0-20.0); CO2, Blood 27 mmol/L (21-32); Chloride, Blood 107 mmol/L (98-108); Creatinine, Blood 0.86 mg/dL (0.60-1.20); Globulin, Blood 3.4 g/dL (2.2-4.0); Glomerular Filtration Rate >60 (60-); Glucose, Blood 138 mg/dL (70-99); Potassium, Blood 4.1 mmol/L (3.5-5.5); Sodium, Blood 141 mmol/L (136-145); Total Protein, Blood 6.7 g/dL (6.4-8.2)
[2021-04-19] MEDS ORDERED: Apple Cider Vi300 MG PO (01:40)
[2021-04-19] MEDS ORDERED: CENTRUM SILVER1 EAC2 PO (01:40)
[2021-04-19] MEDS ORDERED: TRAZ50 PO (01:41)
[2021-04-19] MEDS ORDERED: OLOPATADINE HCL5 ML BOTHEYES (01:46)
[2021-04-19] MEDS ORDERED: HUMALOG KW100 UNIT/1 SC (01:50)
[2021-04-19] MEDS ORDERED: METFORMIN ER G500 MG PO (02:23)
[2021-04-19] MEDS ORDERED: LEVOCETIRIZINE D5 MG PO (02:23)
[2021-04-19] MEDS ORDERED: MONT10T (02:24)
[2021-04-19] MEDS ORDERED: SEN-O-TAB8.6 MG PO (02:24)
[2021-04-19] MEDS ORDERED: ATOR80 PO (11:11)
[2021-04-19] MEDS ORDERED: CLOP75 PO (11:11)
== END 2021-04-19 12:16 | disposition home or self-care (01) ==
LOC: ER 00:34 → ERHOLD 02:30
PROVIDERS: Student in an Organized Health Care Education/Training Program; ADMIT Internal Medicine
DX: G45.9 Transient cerebral ischemic attack, unspecified (principal); R47.81 Slurred speech; R47.01 Aphasia; I10 Essential (primary) hypertension; E11.9 Type 2 diabetes mellitus without complications; E78.5 Hyperlipidemia, unspecified; K21.9 Gastro-esophageal reflux disease without esophagitis; Z87.891 Personal history of nicotine dependence; Z88.2 Allergy status to sulfonamides; Z88.6 Allergy status to analgesic agent; Z88.5 Allergy status to narcotic agent; Z88.8 Allergy status to other drugs, medicaments and biological substances; Z79.4 Long term (current) use of insulin; Z79.899 Other long term (current) drug therapy
CPT/HCPCS: 70450; 80053; 82947; 85025; 85610; 85730; 93005; 93010; 93306; 93880; 96372; 99285-25; A9270; G0378; J1650; J1815; J7030

== ENCOUNTER → 2021-04-24 | Outpatient (CLI) | payer MEDICARE, OTHER ==
[~2021-04-24] MED LIST changes: +ATOR80 PO; +Apple Cider Vi300 MG PO; +CENTRUM SILVER1 EAC2 PO; +HUMALOG KW100 UNIT/1 SC; +LEVOCETIRIZINE D5 MG PO; +METFORMIN ER G500 MG PO; +MONT10T; +OLOPATADINE HCL5 ML BOTHEYES; +SEN-O-TAB8.6 MG PO
== END | disposition home or self-care (01) ==
LOC: LAB SHORT 12:09
DX: C85.80 Other specified types of non-Hodgkin lymphoma, unspecified site (principal); I13.0 Hypertensive heart and chronic kidney disease with heart failure and stage 1 through stage 4 chronic kidney disease, or unspecified chronic kidney disease; I50.43 Acute on chronic combined systolic (congestive) and diastolic (congestive) heart failure; N18.9 Chronic kidney disease, unspecified; D63.8 Anemia in other chronic diseases classified elsewhere; E03.4 Atrophy of thyroid (acquired); E78.2 Mixed hyperlipidemia; E87.6 Hypokalemia; K26.3 Acute duodenal ulcer without hemorrhage or perforation
CPT/HCPCS: 83880

== ENCOUNTER 2021-07-28 10:43 | Day surgery (SDC) | payer MEDICARE, OTHER | END 2021-07-28 11:08 | disposition home or self-care (01) | LOC: ORSCSDS 10:43 | DX: Z86.010 Personal history of colon polyps (principal); C88.4 Extranodal marginal zone B-cell lymphoma of mucosa-associated lymphoid tissue [MALT-lymphoma]; Z53.9 Procedure and treatment not carried out, unspecified reason | CPT/HCPCS: J2704; J7120 ==

== ENCOUNTER 2023-08-31 03:17 | Day surgery (SDC) | payer MEDICARE, OTHER | END 2023-08-31 23:00 | disposition home or self-care (01) | LOC: WOUND 03:17 | DX: L97.822 Non-pressure chronic ulcer of other part of left lower leg with fat layer exposed (principal); L97.812 Non-pressure chronic ulcer of other part of right lower leg with fat layer exposed; I73.9 Peripheral vascular disease, unspecified; I87.2 Venous insufficiency (chronic) (peripheral) | CPT/HCPCS: G0463 ==